=== PATIENT | female | born 1965 | race Caucasian/White ===

== ENCOUNTER 2016-11-01 17:25 | Observation (INO) | payer OTHER ==
--- NOTE | 2016-11-01 18:04 | ED ---
General Adult HPI - General Chief complaint: Altered Mental Status Stated complaint: altered mental status Time Seen by Provider: 11/01/16 17:56 Source: patient, EMS Mode of arrival: EMS Limitations: altered mental status - History of Present Illness Initial comments: 51-year-old female onset about an hour prior to arrival of of confusion, headache they did not note any weakness perhaps mild weakness the right eye. She's had no history of hypertension stroke she's had back surgery in June she has no diabetes asthma emphysema. - Related Data Home Medications Medication Instructions Recorded Confirmed Amitriptyline HCl [Elavil] 25 mg PO HS 11/01/16 11/01/16 Cholecalciferol [Vitamin D3] 2,000 unit PO DAILY 11/01/16 11/01/16 Gabapentin [Neurontin] 300 mg PO TID 11/01/16 11/01/16 Ibuprofen [Motrin] 800 mg PO Q8H PRN 11/01/16 11/01/16 traMADol HCL [Ultram] 50 mg PO Q12H PRN 11/01/16 11/01/16 Previous Rx's Medication Instructions Recorded Cyclobenzaprine [Flexeril] 10 mg PO TID PRN #10 tab 02/16/16 Allergies Allergy/AdvReac Type Severity Reaction Status Date / Time No Known Allergies Allergy Verified 11/01/16 17:53 Review of Systems ROS Statement: Those systems with pertinent positive or pertinent negative responses have been documented in the HPI. ROS Other: All systems not noted in ROS Statement are negative. Constitutional: Denies: fever, chills Eyes: Denies: eye pain, eye discharge ENT: Denies: ear pain, throat pain Respiratory: Denies: cough Cardiovascular: Denies: chest pain Gastrointestinal: Denies: abdominal pain, nausea Neurological: Reports: headache, confusion Hematological/Lymphatic: Denies: easy bleeding, easy bruising Past Medical History Past Medical History: Cancer, Thyroid Disorder Additional Past Medical History / Comment(s): SKIN CANCER, MIGRAINE HEADACHE, THYROID CANCER, CHRONIC BACK History of Any Multi-Drug Resistant Organisms: None Reported Past Surgical History: Section, Orthopedic Surgery Additional Past Surgical History / Comment(s): neck surgery - fusion, thyroidectomy 03/06/15 Past Anesthesia/Blood Transfusion Reactions: No Reported Reaction Past Psychological History: Anxiety Additional Psychological History / Comment(s): severe anxiety Smoking Status: Current every day smoker Past Alcohol Use History: None Reported Past Drug Use History: None Reported - Past Family History Mother Family Medical History: COPD General Exam Limitations: no limitations, altered mental status General appearance: alert Head exam: Present: atraumatic Eye exam: Present: PERRL, EOMI ENT exam: Present: normal oropharynx, mucous membranes moist Neck exam: Present: normal inspection, full ROM Respiratory exam: Present: normal lung sounds bilaterally Cardiovascular Exam: Present: regular rate, normal heart sounds GI/Abdominal exam: Present: soft. Absent: tenderness Neurological exam: Present: alert, CN II-XII intact, motor sensory deficit ( Mild weakness the right hand can move fine motor's no facial weakness NIH scale by the nursing staff is 5 she does have a right foot drop that is old she can has good strength in her legs.) Psychiatric exam: Present: agitated Skin exam: Present: warm, dry Course Vital Signs 11/01/16 11/01/16 11/01/16 17:45 18:00 18:15 Temperature 97.9 F Pulse Rate 113 H 91 110 H Respiratory 18 16 18 Rate Blood Pressure 168/119 194/111 179/91 O2 Sat by Pulse 99 99 98 Oximetry 11/01/16 11/01/16 11/01/16 18:30 18:45 19:21 Temperature Pulse Rate 82 93 82 Respiratory 16 18 16 Rate Blood Pressure 152/92 165/79 136/93 O2 Sat by Pulse 99 99 98 Oximetry Medical Decision Making - Medical Decision Making Stroke robot was consulted with the neurologist regarding stroke when she was evaluated by him the INH scale was down to 2 he advised no TPA at this time he saw a small old stroke she is becoming less confused her blood pressures gradually dropping he's indicates to admit here eventually do a CTA to exclude aneurysm and it MRI will speak with our neurologist and the balloon dipper for admission. We'll speak with balloon dipper for her physician Dr Roman - Lab Data Result diagrams: 11/01/16 18:10 11/01/16 18:10 Lab Results 11/01/16 11/01/16 11/01/16 Range/Units 17:55 18:10 18:10 WBC 8.2 (3.8-10.6) k/uL RBC 4.90 (3.80-5.40) m/uL Hgb 13.9 (11.4-16.0) gm/dL Hct 43.2 (34.0-46.0) % MCV 88.2 (80.0-100.0) fL MCH 28.4 (25.0-35.0) pg MCHC 32.2 (31.0-37.0) g/dL RDW 13.4 (11.5-15.5) % Plt Count 331 (150-450) k/uL Neutrophils % 52 % Lymphocytes % 38 % Monocytes % 5 % Eosinophils % 2 % Basophils % 1 % Neutrophils # 4.3 (1.3-7.7) k/uL Lymphocytes # 3.2 (1.0-4.8) k/uL Monocytes # 0.4 (0-1.0) k/uL Eosinophils # 0.2 (0-0.7) k/uL Basophils # 0.1 (0-0.2) k/uL PT (9.0-12.0) sec INR (<1.1) APTT (22.0-30.0) sec Sodium (137-145) mmol/L Potassium (3.5-5.1) mmol/L Chloride (98-107) mmol/L Carbon Dioxide (22-30) mmol/L Anion Gap mmol/L BUN (7-17) mg/dL Creatinine (0.52-1.04) mg/dL Est GFR (MDRD) Af Amer (>60 ml/min/1.73 sqM) Est GFR (MDRD) Non-Af (>60 ml/min/1.73 sqM) Glucose (74-99) mg/dL Calcium (8.4-10.2) mg/dL Total Bilirubin (0.2-1.3) mg/dL AST (14-36) U/L ALT (9-52) U/L Alkaline Phosphatase (38-126) U/L Total Creatine Kinase 59 (30-135) U/L CK-MB (CK-2) <0.2 (0.0-2.4) ng/mL CK-MB (CK-2) Rel Index Troponin I <0.012 (0.000-0.034) ng/mL Total Protein (6.3-8.2) g/dL Albumin (3.5-5.0) g/dL Urine Color Light Yellow Urine Appearance Clear (Clear) Urine pH 7.0 (5.0-8.0) Ur Specific [place] 1.003 (1.001-1.035) Urine Protein Negative (Negative) Urine Glucose (UA) Negative (Negative) Urine Ketones Negative (Negative) Urine Blood Negative (Negative) Urine Nitrate Negative (Negative) Urine Bilirubin Negative (Negative) Urine Urobilinogen <2.0 (<2.0) mg/dL Ur Leukocyte Esterase Negative (Negative) Urine Opiates Screen Not Detected (NotDetected) Ur Oxycodone Screen Not Detected (NotDetected) Urine Methadone Screen Not Detected (NotDetected) Ur Propoxyphene Screen Not Detected (NotDetected) Ur Barbiturates Screen Not Detected (NotDetected) U Tricyclic Antidepress Detected H (NotDetected) Ur Phencyclidine Scrn Not Detected (NotDetected) Ur Amphetamines Screen Not Detected (NotDetected) U Methamphetamines Scrn Not Detected (NotDetected) U Benzodiazepines Scrn Not Detected (NotDetected) Urine Cocaine Screen Not Detected (NotDetected) U Marijuana (THC) Screen Not Detected (NotDetected) 11/01/16 11/01/16 Range/Units 18:10 18:10 WBC (3.8-10.6) k/uL RBC (3.80-5.40) m/uL Hgb (11.4-16.0) gm/dL Hct (34.0-46.0) % MCV (80.0-100.0) fL MCH (25.0-35.0) pg MCHC (31.0-37.0) g/dL RDW (11.5-15.5) % Plt Count (150-450) k/uL Neutrophils % % Lymphocytes % % Monocytes % % Eosinophils % % Basophils % % Neutrophils # (1.3-7.7) k/uL Lymphocytes # (1.0-4.8) k/uL Monocytes # (0-1.0) k/uL Eosinophils # (0-0.7) k/uL Basophils # (0-0.2) k/uL PT 9.9 (9.0-12.0) sec INR 1.0 (<1.1) APTT 22.3 (22.0-30.0) sec Sodium 145 (137-145) mmol/L Potassium 3.9 (3.5-5.1) mmol/L Chloride 106 (98-107) mmol/L Carbon Dioxide 31 H (22-30) mmol/L Anion Gap 8 mmol/L BUN 6 L (7-17) mg/dL Creatinine 0.63 (0.52-1.04) mg/dL Est GFR (MDRD) Af Amer >60 (>60 ml/min/1.73 sqM) Est GFR (MDRD) Non-Af >60 (>60 ml/min/1.73 sqM) Glucose 96 (74-99) mg/dL Calcium 11.4 H (8.4-10.2) mg/dL Total Bilirubin 0.4 (0.2-1.3) mg/dL AST 19 (14-36) U/L ALT 20 (9-52) U/L Alkaline Phosphatase 93 (38-126) U/L Total Creatine Kinase (30-135) U/L CK-MB (CK-2) (0.0-2.4) ng/mL CK-MB (CK-2) Rel Index Troponin I (0.000-0.034) ng/mL Total Protein 7.5 (6.3-8.2) g/dL Albumin 4.2 (3.5-5.0) g/dL Urine Color Urine Appearance (Clear) Urine pH (5.0-8.0) Ur Specific [place] (1.001-1.035) Urine Protein (Negative) Urine Glucose (UA) (Negative) Urine Ketones (Negative) Urine Blood (Negative) Urine Nitrate (Negative) Urine Bilirubin (Negative) Urine Urobilinogen (<2.0) mg/dL Ur Leukocyte Esterase (Negative) Urine Opiates Screen (NotDetected) Ur Oxycodone Screen (NotDetected) Urine Methadone Screen (NotDetected) Ur Propoxyphene Screen (NotDetected) Ur Barbiturates Screen (NotDetected) U Tricyclic Antidepress (NotDetected) Ur Phencyclidine Scrn (NotDetected) Ur Amphetamines Screen (NotDetected) U Methamphetamines Scrn (NotDetected) U Benzodiazepines Scrn (NotDetected) Urine Cocaine Screen (NotDetected) U Marijuana (THC) Screen (NotDetected) - EKG Data -: EKG Interpreted by Me 11/01/16 18:03 ECG 11/01/2016 1737 ventricular rate 1 her 4 bpm, [place] interval 120 ms, QRS duration 82 ms QT interval 334 ms sinus tachycardia poor progression of the R wave cannot exclude old anterior infarction Disposition Clinical Impression: CVA (cerebral vascular accident), Hypertension, Altered mental status Disposition: ADMITTED IP TO THIS HOSP Condition: Serious Referrals: Polina Mullen MD [Primary Care Provider] - 1-2 days Time of Disposition: 19:05
[2016-11-01 18:20] LABS: Appearance,Urine Clear (Clear); Bilirubin,Urine Negative (Negative); Glucose,Urine (UA) Negative (Negative); Ketones,Urine Negative (Negative); Leukocyte Esterase,Urine Negative (Negative); Nitrite,Urine Negative (Negative); Protein,Urine Negative (Negative); Specific Gravity,Urine 1.003 (1.001-1.035); UA Billing (MACRO vs. MICRO) CHEM; Urobilinogen,Urine <2.0 mg/dL (<2.0)
[2016-11-01 18:21] LABS: Basophils # (A) 0.1 k/uL (0-0.2); Basophils % (A) 1 %; CH 29.1; CHCM 33.1; Eosinophils # (A) 0.2 k/uL (0-0.7); Eosinophils % (A) 2 %; HCT 43.2 % (34.0-46.0); HDW 2.58; HGB 13.9 gm/dL (11.4-16.0); Luc % (Auto) 3; Lymphocytes # (A) 3.2 k/uL (1.0-4.8); Lymphocytes % (A) 38 %; MCH 28.4 pg (25.0-35.0); MCHC 32.2 g/dL (31.0-37.0); MCV 88.2 fL (80.0-100.0); Mean Platelet Volume 7.9; Monocytes # (A) 0.4 k/uL (0-1.0); Monocytes % (A) 5 %; Neutrophils # (A) 4.3 k/uL (1.3-7.7); Neutrophils % (A) 52 %; RDW 13.4 % (11.5-15.5); WBC 8.2 k/uL (3.8-10.6); WBC (Perox) 7.95
[2016-11-01 18:29] LABS: Partial Thromboplastin Time 22.3 sec (22.0-30.0); Prothrombin Time 9.9 sec (9.0-12.0)
[2016-11-01 18:36] LABS: ALT 20 U/L (9-52); AST 19 U/L (14-36); Alkaline Phosphatase 93 U/L (38-126); Anion Gap 8 mmol/L; Blood Urea Nitrogen 6 mg/dL (7-17); Calcium 11.4 mg/dL (8.4-10.2); Carbon Dioxide 31 mmol/L (22-30); Chloride 106 mmol/L (98-107); Glucose 96 mg/dL (74-99); Non-African American GFR(MDRD) >60 (>60 ml/min/1.73 sqM); Potassium 3.9 mmol/L (3.5-5.1); Sodium 145 mmol/L (137-145); Total Bilirubin 0.4 mg/dL (0.2-1.3); Total Protein 7.5 g/dL (6.3-8.2)
[2016-11-01 18:41] LABS: Creatine Kinase 59 U/L (30-135)
--- NOTE | 2016-11-01 18:42 | CT ---
EXAMINATION TYPE: CT brain wo con DATE OF EXAM: 11/01/2016 6:26 PM COMPARISON: Prior CT brain December 16, 2014 HISTORY: Right sided posterior headache CT DLP: 1072.3 mGycm. Automated Exposure Control for Dose Reduction was Utilized. TECHNIQUE: CT scan of the head is performed without contrast. FINDINGS: There is no acute intracranial hemorrhage, mass effect, or midline shift identified. The ventricles and sulci are within normal limits in size. Hill-white matter differentiation is maintai ambrose. There is mild to moderate mucosal thickening in the visualized left maxillary sinus. There is ev idence of prior sinus surgery. There is completely opacified left anterior ethmoid and frontal sinus. IMPRESSION: No acute intracranial hemorrhage hemorrhage or midline shift is seen. Persistent left-si ded sinus disease despite prior sinus surgery.
[2016-11-01 18:54] LABS: Creatine Kinase MB <0.2 ng/mL (0.0-2.4); Troponin I <0.012 ng/mL (0.000-0.034)
[2016-11-01] MEDS ORDERED: RX INFO: IV CONTRAST WAS GIVEN 1 EACH MISC MISCELLANE PRN (19:20)
--- NOTE | 2016-11-01 19:31 | XR ---
EXAMINATION TYPE: XR chest 1V portable DATE OF EXAM: 11/01/2016 7:26 PM COMPARISON: Chest x-ray March 20, 2015. HISTORY: Altered mental status and weakness TECHNIQUE: Single frontal view of the chest is obtained. FINDINGS: There is no focal air space opacity, pleural effusion, or pneumothorax seen. The cardiac silhouette size is within normal limits. Anterior fusion plate lower cervical spine is present. IMPRESSION: No acute process.
[2016-11-01] MEDS ORDERED: ASPIRIN 325 MG TAB PO STA (19:43)
--- NOTE | 2016-11-01 20:12 | CT ---
EXAMINATION TYPE: CT angio head DATE OF EXAM: 11/01/2016 7:58 PM COMPARISON: NONE HISTORY: Right sided posterior headache CT DLP: 1002 mGycm Automated exposure control for dose reduction was used. TECHNIQUE: Performed with IV Contrast, patient injected with 100 mL of Omnipaque 350. Three-D reconstructed imag es are created and reviewed on independent workstation. . FINDINGS: There is codominant vertebrobasilar system. There is no significant focal stenosis or aneurysmal chavez ge in the posterior circulation. There are patent posterior communicating arteries identified bilater ally. Images of the anterior circulation show no significant focal stenosis or aneurysmal change. Patent an terior communicating artery is noted. IMPRESSION: No significant focal stenosis or aneurysmal change at [place].
[2016-11-01 22:47] VITALS: BMI 28.3
[2016-11-01] MEDS: AMITRIPTYLINE HCL 25 MG TAB PO SCH (22:50)
[2016-11-01] MEDS: GABAPENTIN 300 MG CAP PO SCH (22:50)
[2016-11-02 08:21] LABS: Glucose,Whole Blood 87 mg/dL (75-99)
--- NOTE | 2016-11-02 09:08 | US ---
EXAMINATION TYPE: US carotid duplex BILAT DATE OF EXAM: 11/02/2016 8:57 AM COMPARISON: NONE CLINICAL HISTORY: Stenosis. Confusion, headache, right sided weakness EXAM MEASUREMENTS: RIGHT: Peak Systolic Velocity (PSV) cm/sec ----- Right CCA: 72.8 ----- Right ICA: 81.1 ----- Right ECA: 84.4 ICA/CCA ratio: 1.1 RIGHT: End Diastole cm/sec ----- Right CCA: 24.8 ----- Right ICA: 40.3 ----- Right ECA: 21.6 LEFT: Peak Systolic Velocity (PSV) cm/sec ----- Left CCA: 75.3 ----- Left ICA: 96.6 ----- Left ECA: 65.6 ICA/CCA ratio: 1.3 LEFT: End Diastole cm/sec ----- Left CCA: 26.0 ----- Left ICA: 30.6 ----- Left ECA: 19.4 VERTEBRALS (direction of flow): Right Vertebral: Antegrade Left Vertebral: Antegrade IMPRESSION: Mild plaque noted bilateral bifurcations. NO increased velocities. NO significant stenos is. Criteria for Assigning % of Stenosis / Diameter reduction (Estimation based on the indirect measurements of the internal carotid artery velocities (ICA PSV). 1. Normal (no stenosis)=ICA PSV < 125 cm/s: ratio < 2.0: ICA EDV<40 cm/s. 2. Less than 50% stenosis=ICA PSV < 125 cm/s: ratio < 2.0: ICA EDV<40 cm/s. 3. 50 to 69% stenosis=ICA PSV of 125 to 230 cm/s: ration 2.0 ? 4.0: ICA EDV 40-100 cm/s. 4. Greater than 70% stenosis to near occlusion= ICA PSV > 230 cm/s: ratio > 4.0: ICA EDV > 100 cm/s. 5. Near occlusion= ICA PSV velocities may be low or undetectable: variable ratio and ICA EDV. 6. Total occlusion=unable to detect flow.
[2016-11-02] MEDS: GABAPENTIN 300 MG CAP PO SCH ×3 (09:21→20:21)
[2016-11-02] MEDS: ASPIRIN 325 MG TAB PO SCH (09:22)
--- NOTE | 2016-11-02 13:50 | HP ---
DATE OF ADMISSION: CHIEF COMPLAINT: CVA. HISTORY OF PRESENT ILLNESS: This is the first known admission for this 51-year-old G3, P3, A0 white female. She started to have some pain in the posterior neck associated with a headache and she came to emergency room where it was thought that she was having a CVA or TIA. Blood pressure was very high. She had no visual changes, syncope, chest pain, etc. REVIEW OF SYSTEMS: She has had no other signs or symptoms and she has had no neurologic problems, history of other medical problems, seizures, headaches, etc. She is left-handed. Past medical history, family history, and personal and social histories reveal that she has had surgery on her LS-spine and she has right drop foot as a result. She has also had thyroid malignancy in the past and cervical spine fusion. She is not allergic to any medications. She smokes about 1/2 pack of cigarettes a day. PHYSICAL EXAMINATION: VITALS SIGNS: Blood pressure is 210/110 with a pulse of 96, respirations 30 and she is afebrile. GENERAL: She appeared to be ( ), well-developed, well-nourished, in no acute distress. Skin color is normal. Skin is warm and dry. Lymph nodes are not enlarged. Head, ears, eyes, nose, mouth, and throat were normal. Carotids normal and there is no neck vein distention. The chest is clear to auscultation and percussion. The cardiac exam is normal, sinus rhythm with no murmurs or extra sounds. The abdomen is soft and nontender without visceromegaly or masses. EXTREMITIES: Normal except for the right drop foot. She is in admitted to the hospital with diagnoses: 1. Questionable cerebrovascular accident or transient ischemic attack. 2. Malignant hypertension. 3. History of cervical spondylosis. 4. 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 5. History of carcinoma of the thyroid. PLAN: 1. Bed rest. 2. IV fluids. 3. Frequent monitoring of her neurologic status and vital signs. 4. Carotid duplex imaging and echocardiogram.
--- NOTE | 2016-11-02 13:53 | PN ---
DATE OF SERVICE: 11/02/2016 CHIEF COMPLAINT: CVA or TIA. HISTORY OF PRESENT ILLNESS: This lady is doing a lot better today. She has fairly well-preserved strength. She is left-handed. PHYSICAL EXAM: HEENT is normal. Chest is clear. The cardiac exam is normal. The abdomen is soft, nontender. She is a little bit weaker on the right than on the left, but she is left-handed. IMPRESSION: 1. Transient ischemic attack or cerebrovascular accident. 2. Malignant hypertension. PLAN: 1. Continue work-up. 2. Increase activity.
[2016-11-02] MEDS: NICOTINE 21MG/24HR PATCH TRANSDERM SCH (15:00)
--- NOTE | 2016-11-02 17:37 | P.CNNES ---
History of Present Illness Consult date: 11/02/16 History of Present Illness: The patient is a 51-year-old left-handed white female who states that around 4: 00 yesterday afternoon she developed pain in the right occipital area and right frontal head region. She has a history of migraine headaches and the night before she had taken some Motrin for her usual headache but this headache was different in that it is in the occiput region. She has a history of migraines but this headache was not a migraine and was not associated with nausea or photophobia. According to family were at her bedside she became confused after her headache came on. She became somewhat hysterical. She did not know where she was and for a while did not know her daughter. Her daughter called EMS and she was brought to the emergency room. She had no focal weakness or numbness. She had no speech disturbance. She was given an aspirin in her headache eased. She had a CT of the brain which was unremarkable and a CTA was done which showed no significant stenosis. She was admitted to the hospital for possible TIA. The patient states her headache is better now after taking aspirin. She points to the right occipital notch and does admit to some tenderness there. She has a history of cervical fusion in the past but denies any current neck problems. She has chronic back problems. Review of Systems Constitutional: Denies chills, Denies fever Eyes: denies blurred vision, denies pain Ears, nose, mouth and throat: Denies headache, Denies sore throat Cardiovascular: Reports as per HPI Respiratory: Reports as per HPI Gastrointestinal: Denies abdominal pain, Denies diarrhea, Denies nausea, Denies vomiting Genitourinary: Denies dysuria, Denies hematuria Musculoskeletal: Denies myalgias Neurological: Denies numbness, Denies weakness Psychiatric: Denies anxiety, Denies depression Endocrine: Reports as per HPI Past Medical History Past Medical History: Cancer, Thyroid Disorder Additional Past Medical History / Comment(s): SKIN CANCER, MIGRAINE HEADACHE, THYROID CANCER, CHRONIC BACK History of Any Multi-Drug Resistant Organisms: None Reported Past Surgical History: Section, Orthopedic Surgery Additional Past Surgical History / Comment(s): neck surgery - fusion, thyroidectomy 03/06/15, back surgery 07/08 Past Anesthesia/Blood Transfusion Reactions: No Reported Reaction Past Psychological History: Anxiety Additional Psychological History / Comment(s): severe anxiety Smoking Status: Current every day smoker Past Alcohol Use History: None Reported Past Drug Use History: None Reported - Past Family History Mother Family Medical History: COPD Medications and Allergies Home Medications Medication Instructions Recorded Confirmed Type Amitriptyline HCl [Elavil] 25 mg PO HS 11/01/16 11/01/16 History Cholecalciferol [Vitamin D3] 2,000 unit PO DAILY 11/01/16 11/01/16 History Gabapentin [Neurontin] 300 mg PO TID 11/01/16 11/01/16 History Ibuprofen [Motrin] 800 mg PO Q8H PRN 11/01/16 11/01/16 History traMADol HCL [Ultram] 50 mg PO Q12H PRN 11/01/16 11/01/16 History Allergies Allergy/AdvReac Type Severity Reaction Status Date / Time No Known Allergies Allergy Verified 11/01/16 17:53 Physical Examination - Vital Signs Vital Signs: Vital Signs Temp Pulse Pulse Resp BP BP Pulse Ox 11/02/16 16:00 97.4 F L 92 18 138/76 97 11/02/16 12:00 96.8 F L 95 18 143/91 97 11/02/16 08:00 97.1 F L 88 18 127/83 98 11/02/16 04:00 98.1 F 84 16 116/75 98 11/02/16 00:00 96.1 F L 86 18 131/93 96 11/01/16 20:42 96.3 F L 88 18 132/87 98 11/01/16 19:55 72 16 142/96 97 Intake and Output 11/02/16 11/02/16 11/02/16 06:59 14:59 22:59 Intake Total 300 Output Total 250 1000 Balance 50 -1000 Intake: Oral 300 Output: Urine 250 1000 Other: Voiding Method Toilet Toilet Toilet # Voids 1 Weight 60 kg - Constitutional General appearance: average body habitus - EENT EENT: hearing intact, vision intact - Respiratory Respiratory: lungs clear - Cardiovascular Cardiovascular: regular rate, normal S1, normal S2 - Integumentary Integumentary: normal - Neurologic Cranial nerve examination: PERRL, EOMI, VFF, V1/V2/V3 grossly intact, face symmetric, tongue midline Speech examination: intact Sensorimotor examination: intact Detailed motor examination: grossly full strength in all extremities Reflexes: 2+: knee Results - Laboratory Findings CBC and BMP: 11/01/16 18:10 11/01/16 18:10 Assessment and Plan (1) Occipital neuralgia of right side Status: Acute Code(s): M54.81 - OCCIPITAL NEURALGIA (2) TIA (transient ischemic attack) Status: Acute Code(s): G45.9 - TRANSIENT CEREBRAL ISCHEMIC ATTACK, UNSPECIFIED (3) Hypertension Status: Acute Code(s): I10 - ESSENTIAL (PRIMARY) HYPERTENSION Plan: The patient is a 51-year-old woman who presents to the hospital with headache and confusion. He continues to have a mild right occipital notch tenderness and headache. Patient most likely has right occipital neuralgia. She was offered an occipital nerve block but she declined. She can be treated with nonsteroidal anti-inflammatories. She is also admitted for possible TIA. Her carotid ultrasound is negative. Her CT was unremarkable. If headache does not resolve she can have an MRI of the brain which can be done as outpatient. She will continue on aspirin daily. She will have an echocardiogram to complete TIA workup
[2016-11-02] MEDS: AMITRIPTYLINE HCL 25 MG TAB PO SCH (20:21)
[2016-11-02] MEDS ORDERED: NICOTINE 21MG/24HR PATCH TRANSDERM ONE (20:30)
[2016-11-03] MEDS: NICOTINE 21MG/24HR PATCH TRANSDERM SCH ×2 (08:32→08:34)
[2016-11-03] MEDS: GABAPENTIN 300 MG CAP PO SCH (08:32)
[2016-11-03] MEDS: ASPIRIN 325 MG TAB PO SCH (08:32)
[2016-11-03 08:37] VITALS: BP 111/58; PULSE 75; RESP 17; TEMP 97.1
--- NOTE | 2016-11-03 09:36 | ECHOF ---
Referral Reason:TIA MEASUREMENTS -------- HEIGHT: 152.4 cm WEIGHT: 59.9 kg BP: 91/53 IVSd: 1.0 cm (0.6 - 1.1) LVIDd: 3.2 cm (3.9 - 5.3) LVPWd: 1.1 cm (0.6 - 1.1) IVSs: 1.2 cm LVIDs: 2.3 cm LVPWs: 1.2 cm LA Diam: 2.5 cm (2.7 - 3.8) Ao Diam: 3.0 cm (2.0 - 3.7) AV Cusp: 1.9 cm (1.5 - 2.6) LA Diam: 3.5 cm (2.7 - 3.8) MV EXCURSION: 17.310 mm (> 18.000) MV EF SLOPE: 90 mm/s (70 - 150) EPSS: 0.5 cm MV E Wade: 0.59 m/s MV DecT: 135 ms MV A Wade: 0.65 m/s MV E/A Ratio: 0.91 RAP: 5.00 mmHg RVSP: 15.61 mmHg FINDINGS -------- Sinus rhythm. This was a technically good study. LV size, wall thickness and systolic function are normal, with an EF greater than 55%. The right ventricle is normal in size. The left atrial size is normal. The right atrial size is normal. There is mild aortic valve sclerosis. There is no evidence of aortic regurgitation. Mild mitral annular calcification present. Mild mitral regurgitation is present. Mild tricuspid regurgitation present. There is no evidence of pulmonary hypertension. The right ventricular systolic pressure, as measured by Doppler, is 15.61mmHg. There is no pulmonic regurgitation present. The aortic root size is normal. There is no pericardial effusion. CONCLUSIONS -------- 1. LV size, wall thickness and systolic function are normal, with an EF greater than 55%. 2. There is mild aortic valve sclerosis. 3. Mild mitral annular calcification present. 4. Mild mitral regurgitation is present. 5. Mild tricuspid regurgitation present. 6. There is no evidence of pulmonary hypertension. 7. The right ventricular systolic pressure, as measured by Doppler, is 15.61mmHg. PARKING LOT ATTENDANT AND CASHIER: Linda Solano RDCS
--- NOTE | 2016-11-03 11:11 | P.DS ---
Providers Date of admission: 11/01/16 19:43 Expected date of discharge: 11/03/16 Attending physician: Benjamin Roman Consults: Dr. Lira Primary care physician: [facility] Course: 51-year-old who presents to the hospital on the day of admission with a chief complaint of a headache and noted to be confused. Patient had mild right occipital notch tenderness with a headache. Neurology consultation was requested. Patient was seen by Dr. Lira. Patient's was felt to be likely experiencing a right occipital neuralgia patient was offered an occipital nerve block the patient declined patient was treated with anti-inflammatories. Carotid Doppler studies were negative CAT scan of the brain was unremarkable patient's symptoms improved patient was requesting to be discharged. Neurology recommended starting an aspirin on the patient to the patient to be followed in an outpatient setting the CAT scan of the brain showed no aneurysm. Chest x- ray showed no acute abnormality. Impression discharge diagnosis Present on admission right frontal head headache with right occipital area no focal weakness no speech disturbance possible TIA not ruled out History of migraine headache associated the past with photophobia and nausea Anxiety disorder nonspecified Current every day smoker Occipital neuralgia of right side Status: Acute Code(s): M54.81 - OCCIPITAL NEURALGIA (2) TIA (transient ischemic attack) Status: Acute Code(s): G45.9 - TRANSIENT CEREBRAL ISCHEMIC ATTACK, UNSPECIFIED (3) Hypertension Status: Acute Code(s): I10 - ESSENTIAL (PRIMARY) HYPERTENSION The above dictated assessment and findings were discussed with dr juan luis Tinajero and the plan of care have been dictated as directed. Libby Stoddard nurse practitioner acting as a scribe for dr roman Patient Condition at Discharge: Serious Plan - Discharge Summary New Discharge Prescriptions: Aspirin 325 mg PO DAILY #30 tab Discharge Medication List Cyclobenzaprine [Flexeril] 10 mg PO TID PRN #10 tab 02/16/16 [Rx] Amitriptyline HCl [Elavil] 25 mg PO HS 11/01/16 [History] Cholecalciferol [Vitamin D3] 2,000 unit PO DAILY 11/01/16 [History] Gabapentin [Neurontin] 300 mg PO TID 11/01/16 [History] Ibuprofen [Motrin] 800 mg PO Q8H PRN 11/01/16 [History] traMADol HCL [Ultram] 50 mg PO Q12H PRN 11/01/16 [History] Aspirin 325 mg PO DAILY #30 tab 11/03/16 [Rx] Follow up Appointment(s)/Referral(s): Polina Mullen MD [Primary Care Provider] - 1-2 days Sheri Lira MD [STAFF PHYSICIAN] - 1 Week Activity/Diet/Wound Care/Special Instructions: Patient has been advised to stop smoking cigarettes smoking cessation information provided Discharge Disposition: HOME SELF-CARE
--- NOTE | 2016-11-03 21:24 | PN ---
DATE OF SERVICE: 11/03/2016 CHIEF COMPLAINT: Malignant hypertension and CVA. HISTORY OF PRESENT ILLNESS: This lady is doing well. She has had no problems. She is having no neurologic difficulty. Blood pressure has been under good control. PHYSICAL EXAMINATION: CHEST: Clear. CARDIAC: Normal. ABDOMEN: Soft, nontender. She has no weakness. IMPRESSION: 1. Malignant hypertension. 2. Transient ischemic attack. PLAN: Probably home today. This will be arranged by the nurse practitioner.
== END 2016-11-03 12:24 | disposition home or self-care (01) ==
LOC: EC 17:25 → 6SEL 19:43 → INTOOBSV 19:43 → 6SEL 21:01
PROVIDERS: ADMIT Family Medicine; ATTEND Family Medicine
DX: M54.81 Occipital neuralgia (principal); G45.9 Transient cerebral ischemic attack, unspecified; I10 Essential (primary) hypertension; F17.200 Nicotine dependence, unspecified, uncomplicated; Z79.899 Other long term (current) drug therapy; Z85.828 Personal history of other malignant neoplasm of skin; Z85.850 Personal history of malignant neoplasm of thyroid; Z98.1 Arthrodesis status; G43.909 Migraine, unspecified, not intractable, without status migrainosus; M21.371 Foot drop, right foot; Z71.6 Tobacco abuse counseling
CPT/HCPCS: 99291; 36415; 93005; 93306; 97161; 92610; 92523; 80053; 82550; 82553; 84484; 85025; 85610; 85730; 81003; 80306; 71010; 93880; 70496; 70450; G0378 ×3; S4990; Q9967

== ENCOUNTER → 2017-05-25 | Outpatient (CLI) | payer OTHER ==
--- NOTE | 2017-05-25 09:27 | USB ---
Reason for exam: additional evaluation requested from abnormal screening. History: Patient is postmenopausal and has history of other cancer at age 50. Physical Findings: Breast exam preformed at baseline screening. US Breast Workup Limited RT Prior study comparison: May 18, 2017, bilateral MG screening mammo w CAD. Right breast ultrasound demonstrates no cystic or solid lesion seen. These results were verbally communicated with the patient and result sheet given to the patient on 05/25/17. ASSESSMENT: Incomplete: need additional imaging evaluation, BI-RAD 0 RECOMMENDATION: Special view mammogram of the right breast. (Patient would not stay for additional mammographic images, states she will call and make an appointment to come back at a later date) ROSA
== END | disposition home or self-care (01) ==
LOC: RADUSWWP 07:59
PROVIDERS: ATTEND Obstetrics & Gynecology
DX: R92.8 Other abnormal and inconclusive findings on diagnostic imaging of breast (principal)

== ENCOUNTER → 2017-05-27 | Outpatient (CLI) | payer OTHER ==
--- NOTE | 2017-05-27 23:10 | MR ---
EXAMINATION TYPE: MR lumbar spine wo/w con DATE OF EXAM: 05/27/2017 COMPARISON: NONE HISTORY: Radiculopathy TECHNIQUE: Multiplanar, multisequence images of the lumbar spine were acquired utilizing 6.0 mL intravenous Gada vist gadolinium contrast. The lumbar vertebra have normal alignment. There is degenerative disc space narrowing throughout the lumbar spine and more noticeable from L2 to L5. There is no spinal stenosis. There is no paraspinal m ass. There is no compression fracture. There are multiple cysts in the left kidney. There are small posterior disc bulges at L3-4 L4-5 without significant impingement on the neural nuiqsut ents. The neural foramina are fairly well maintained. The contrast images show no pathologic enhancem ent. IMPRESSION: Spondylotic changes. No spinal stenosis. Small posterior disc bulging at L3-4 L4-5. L5 laminectomy no willis on the right side.
== END | disposition home or self-care (01) ==
LOC: RADMRIMAIN 20:44
PROVIDERS: ATTEND Nurse Practitioner Acute Care
DX: M51.16 Intervertebral disc disorders with radiculopathy, lumbar region (principal); M47.26 Other spondylosis with radiculopathy, lumbar region; R39.81 Functional urinary incontinence; Z85.850 Personal history of malignant neoplasm of thyroid; Z98.890 Other specified postprocedural states
CPT/HCPCS: 72158; A9581

== ENCOUNTER → 2017-06-08 | Day surgery (SDC) | payer OTHER ==
[2017-06-08 07:46] VITALS: RESP 16; BMI 24.7
[2017-06-08 09:08] VITALS: BP 105/75; PULSE 71; TEMP 96.8
--- NOTE | 2017-06-09 09:37 | MM ---
EXAMINATION TYPE: MG stereo VAD BX RT, MG work up mamm w CAD RT DATE OF EXAM: 06/08/2017 COMPARISON: Exams dating back to 05/18/2017 CLINICAL HISTORY: 7 mm right breast mass at the 7:00 position TECHNIQUE: Stereotactic guided core biopsy of a right breast mass. FINDINGS: The procedure of stereotactic guided core biopsy was explained to the patient. Benefits, alternatives, and risks were discussed. An informed consent was then obtained. The shortness pathway for biopsy was chosen. Shortness pathway was CC from below approach. Coordinates were plotted and the patient was anesthetized with 10 cc of Xylocaine without epinephrine. Eight core needle biopsies were obtained with a 19-gauge eviva vacuum assisted biopsy device after approaching the area and anesthetizing with 10 cc of additional Xylocaine at the biopsy site. The patient tolerated the procedure well without any immediate complication. The patient was kept in the radiology department for short stay after the procedure and then discharged home in stable condition. Post biopsy mammogram shows the marker to appear in satisfactory position relative to the targeted area of concern on the preprocedure images. IMPRESSION: SUCCESSFUL, UNCOMPLICATED STEREOTACTIC GUIDED CORE BIOPSY OF AREA OF CONCERN IN THE RIGHT BREAST, FULL PATHOLOGY RESULTS TO FOLLOW. Pathology Results: Benign BREAST, RIGHT, CORE BIOPSY: FIBROADENOMA. BACKGROUND FIBROCYSTIC CHANGES INCLUDING FIBROSIS AND SMALL CYSTS. Recommendation Follow up mammogram of the right breast in 6 months. ROSA
== END ==
LOC: RADMAMWWP 06:48
PROVIDERS: ATTEND Surgery
DX: D24.1 Benign neoplasm of right breast (principal); N60.11 Diffuse cystic mastopathy of right breast; N60.01 Solitary cyst of right breast
CPT/HCPCS: 88305; 19081; A4648; J2001

== ENCOUNTER 2018-11-06 09:46 | Emergency (ER) | payer MEDICARE, OTHER ==
[2018-11-06] MEDS ORDERED: SODIUM CHLORIDE 0.9% 1,000 ML IV STA (09:49)
[2018-11-06] MEDS ORDERED: MAG HYDROX/AL HYDROX/SIMETH 30 ML, HYOSCYAMINE ELIXIR 10 ML, CIMETIDINE HCL 300 MG, LID... PO STA ×4 (09:53)
[2018-11-06 10:05] LABS: HCT 45.6 % (34.0-46.0); HGB 14.4 gm/dL (11.4-16.0); MCH 28.2 pg (25.0-35.0); MCHC 31.6 g/dL (31.0-37.0); Mean Platelet Volume 7.3; Platelet Count 276 k/uL (150-450); RBC 5.13 m/uL (3.80-5.40); RDW 13.3 % (11.5-15.5); WBC 12.9 k/uL (3.8-10.6)
[2018-11-06 10:15] LABS: ALT 43 U/L (9-52); AST 55 U/L (14-36); Albumin 2.9 g/dL (3.5-5.0); Alkaline Phosphatase 84 U/L (38-126); Amylase 33 U/L (30-110); Anion Gap 3 mmol/L; Blood Urea Nitrogen 10 mg/dL (7-17); Calcium 10.1 mg/dL (8.4-10.2); Carbon Dioxide 24 mmol/L (22-30); Chloride 112 mmol/L (98-107); Creatine Kinase 37 U/L (30-135); Glucose 94 mg/dL (74-99); Lipase 139 U/L (23-300); Potassium 4.3 mmol/L (3.5-5.1); Sodium 139 mmol/L (137-145); Total Bilirubin 0.3 mg/dL (0.2-1.3); Total Protein 5.2 g/dL (6.3-8.2)
--- NOTE | 2018-11-06 10:27 | ED ---
Abdominal Pain HPI - General Stated Complaint: Epigastric pain Time Seen by Provider: 11/06/18 09:49 Source: patient, EMS, RN notes reviewed Mode of arrival: EMS Limitations: no limitations - History of Present Illness Initial Comments: 53-year-old female presents emergency Department with chief complaint of sudden onset of epigastric pain. Patient states she went to the bathroom states his chemo she had severe pain epigastric region. She states it radiates to her back. Patient states that she feels nauseated and started vomiting. Patient denies any shortness of breath. Patient states that the pain radiates up into her chest as a burning sensation. Patient denies any lower abdominal pain denies any dysuria, hematuria, diarrhea, constipation, melena hematochezia. Patient states nothing makes the pain feel better or worse at this time. Patient was given aspirin and Zofran by EMS. Patient states that she is to take medications regularly but states she has not taken prescription medications in over 1 year. She states that she used to be on [place], Flexeril and gabapentin. - Related Data Home Medications Medication Instructions Recorded Confirmed Folic Acid 0.4 mg PO MO 11/06/18 11/06/18 Ibuprofen [Motrin] 800 mg PO TID 11/06/18 11/06/18 Allergies Allergy/AdvReac Type Severity Reaction Status Date / Time No Known Allergies Allergy Verified 11/06/18 09:57 Review of Systems ROS Statement: Those systems with pertinent positive or pertinent negative responses have been documented in the HPI. ROS Other: All systems not noted in ROS Statement are negative. Past Medical History Past Medical History: Cancer, Thyroid Disorder Additional Past Medical History / Comment(s): SKIN CANCER, MIGRAINE HEADACHE, THYROID CANCER, CHRONIC BACK PAIN History of Any Multi-Drug Resistant Organisms: None Reported Past Surgical History: Section, Orthopedic Surgery Additional Past Surgical History / Comment(s): neck surgery - fusion, thyroidectomy 03/06/15, back surgery 07/08 Past Anesthesia/Blood Transfusion Reactions: No Reported Reaction Past Psychological History: No Psychological Hx Reported Smoking Status: Current every day smoker Past Alcohol Use History: None Reported Past Drug Use History: None Reported - Past Family History Mother Family Medical History: COPD General Exam Limitations: no limitations General appearance: alert, in no apparent distress, anxious Head exam: Present: atraumatic, normocephalic, normal inspection Eye exam: Present: normal appearance, PERRL, EOMI. Absent: scleral icterus, conjunctival injection, periorbital swelling ENT exam: Present: normal oropharynx Neck exam: Present: normal inspection, full ROM. Absent: tenderness, meningismus, lymphadenopathy Respiratory exam: Present: normal lung sounds bilaterally. Absent: respiratory distress, wheezes, rales, rhonchi, stridor Cardiovascular Exam: Present: normal rhythm, tachycardia (Heart rate 104), normal heart sounds. Absent: systolic murmur, diastolic murmur, rubs, gallop, clicks GI/Abdominal exam: Present: soft, tenderness (Moderate epigastric), normal bowel sounds. Absent: distended, guarding, rebound, rigid Back exam: Absent: CVA tenderness (R), CVA tenderness (L) Skin exam: Present: warm, dry, intact, normal color. Absent: rash Course Vital Signs 11/06/18 11/06/18 09:50 10:36 Temperature 98 F Pulse Rate 104 H 83 Respiratory 24 18 Rate Blood Pressure 150/114 125/89 O2 Sat by Pulse 97 98 Oximetry Medical Decision Making - Medical Decision Making 53-year-old female presents emergency from for epigastric pain. Patient was given GI cocktail which eliminated her symptoms though she did have some symptoms that radiate to her back. Patient lab work, CT of the abdomen and pelvis which shows evidence of hiatal hernia with intrathoracic stomach. Patient symptoms are more likely related to her had a hernia at this time. She is symptom-free. Patient's EKG, lab work otherwise unremarkable. Patient will follow-up with on-call surgery return for any worsening symptoms. - Lab Data Result diagrams: 11/06/18 09:50 11/06/18 09:50 Lab Results 11/06/18 11/06/18 11/06/18 Range/Units 09:50 09:50 09:50 WBC 12.9 H (3.8-10.6) k/uL RBC 5.13 (3.80-5.40) m/uL Hgb 14.4 (11.4-16.0) gm/dL Hct 45.6 (34.0-46.0) % MCV 89.0 (80.0-100.0) fL MCH 28.2 (25.0-35.0) pg MCHC 31.6 (31.0-37.0) g/dL RDW 13.3 (11.5-15.5) % Plt Count 276 (150-450) k/uL Neutrophils % (Manual) 51 % Lymphocytes % (Manual) 46 % Monocytes % (Manual) 2 % Eosinophils % (Manual) 1 % Neutrophils # (Manual) 6.58 (1.3-7.7) k/uL Lymphocytes # (Manual) 5.93 H (1.0-4.8) k/uL Monocytes # (Manual) 0.26 (0-1.0) k/uL Eosinophils # (Manual) 0.13 (0-0.7) k/uL Nucleated RBCs 0 (0-0) /100 WBC Manual Slide Review Performed RBC Morphology Normal Sodium 139 (137-145) mmol/L Potassium 4.3 (3.5-5.1) mmol/L Chloride 112 H (98-107) mmol/L Carbon Dioxide 24 (22-30) mmol/L Anion Gap 3 mmol/L BUN 10 (7-17) mg/dL Creatinine 0.59 (0.52-1.04) mg/dL Est GFR (CKD-EPI)AfAm >90 (>60 ml/min/1.73 sqM) Est GFR (CKD-EPI)NonAf >90 (>60 ml/min/1.73 sqM) Glucose 94 (74-99) mg/dL Plasma Lactic Acid Jose 1.3 (0.7-2.0) mmol/L Calcium 10.1 (8.4-10.2) mg/dL Total Bilirubin 0.3 (0.2-1.3) mg/dL AST 55 H (14-36) U/L ALT 43 (9-52) U/L Alkaline Phosphatase 84 (38-126) U/L Creatine Kinase 37 (30-135) U/L Troponin I (0.000-0.034) ng/mL Total Protein 5.2 L (6.3-8.2) g/dL Albumin 2.9 L (3.5-5.0) g/dL Amylase 33 (30-110) U/L Lipase 139 (23-300) U/L Urine Color Urine Appearance (Clear) Urine pH (5.0-8.0) Ur Specific [place] (1.001-1.035) Urine Protein (Negative) Urine Glucose (UA) (Negative) Urine Ketones (Negative) Urine Blood (Negative) Urine Nitrite (Negative) Urine Bilirubin (Negative) Urine Urobilinogen (<2.0) mg/dL Ur Leukocyte Esterase (Negative) 11/06/18 11/06/18 Range/Units 09:50 11:58 WBC (3.8-10.6) k/uL RBC (3.80-5.40) m/uL Hgb (11.4-16.0) gm/dL Hct (34.0-46.0) % MCV (80.0-100.0) fL MCH (25.0-35.0) pg MCHC (31.0-37.0) g/dL RDW (11.5-15.5) % Plt Count (150-450) k/uL Neutrophils % (Manual) % Lymphocytes % (Manual) % Monocytes % (Manual) % Eosinophils % (Manual) % Neutrophils # (Manual) (1.3-7.7) k/uL Lymphocytes # (Manual) (1.0-4.8) k/uL Monocytes # (Manual) (0-1.0) k/uL Eosinophils # (Manual) (0-0.7) k/uL Nucleated RBCs (0-0) /100 WBC Manual Slide Review RBC Morphology Sodium (137-145) mmol/L Potassium (3.5-5.1) mmol/L Chloride (98-107) mmol/L Carbon Dioxide (22-30) mmol/L Anion Gap mmol/L BUN (7-17) mg/dL Creatinine (0.52-1.04) mg/dL Est GFR (CKD-EPI)AfAm (>60 ml/min/1.73 sqM) Est GFR (CKD-EPI)NonAf (>60 ml/min/1.73 sqM) Glucose (74-99) mg/dL Plasma Lactic Acid Jose (0.7-2.0) mmol/L Calcium (8.4-10.2) mg/dL Total Bilirubin (0.2-1.3) mg/dL AST (14-36) U/L ALT (9-52) U/L Alkaline Phosphatase (38-126) U/L Creatine Kinase (30-135) U/L Troponin I <0.012 (0.000-0.034) ng/mL Total Protein (6.3-8.2) g/dL Albumin (3.5-5.0) g/dL Amylase (30-110) U/L Lipase (23-300) U/L Urine Color Light Yellow Urine Appearance Clear (Clear) Urine pH 5.5 (5.0-8.0) Ur Specific [place] 1.017 (1.001-1.035) Urine Protein Negative (Negative) Urine Glucose (UA) Negative (Negative) Urine Ketones Negative (Negative) Urine Blood Negative (Negative) Urine Nitrite Negative (Negative) Urine Bilirubin Negative (Negative) Urine Urobilinogen <2.0 (<2.0) mg/dL Ur Leukocyte Esterase Negative (Negative) - EKG Data EKG Comments: EKG performed at 10:05 normal sinus rhythm with rate of 77 NC 152 QRS 88 QT/QTC 360/[address] depression or elevation. Disposition Clinical Impression: Hiatal hernia, Abdominal pain Disposition: HOME SELF-CARE Condition: Stable Instructions (If sedation given, give patient instructions): Abdominal Pain (ED), Hiatal Hernia (ED) Additional Instructions: Please return to the Emergency Department if symptoms worsen or any other concerns. Is patient prescribed a controlled substance at d/c from ED?: No Referrals: Polina Mullen MD [Primary Care Provider] - 1-2 days Emeterio West MD [STAFF PHYSICIAN] - 1-2 days Time of Disposition: 12:20
[2018-11-06 10:37] VITALS: RESP 18
--- NOTE | 2018-11-06 10:38 | XR ---
EXAMINATION TYPE: XR chest 1V DATE OF EXAM: 11/06/2018 COMPARISON: Prior chest x-ray 11/01/2016 HISTORY: Chest pain TECHNIQUE: Single frontal view of the chest is obtained. FINDINGS: There is no focal air space opacity, pleural effusion, or pneumothorax seen. The cardiac silhouette size is stable. There are cardiac leads. The osseous structures are intact. IMPRESSION: No acute process.
[2018-11-06 10:57] LABS: Eosinophils # (M) 0.13 k/uL (0-0.7); Lymphocytes # (M) 5.93 k/uL (1.0-4.8); Monocytes # (M) 0.26 k/uL (0-1.0); Neutrophils # (M) 6.58 k/uL (1.3-7.7); Neutrophils % (M) 51 %; Nucleated Red Blood Cells 0 /100 WBC (0-0); Total Cells Counted 100
--- NOTE | 2018-11-06 11:45 | CT ---
EXAMINATION TYPE: CT abdomen pelvis w con DATE OF EXAM: 11/06/2018 COMPARISON: CT 03/20/2015 HISTORY: epigastric pain CT DLP: 698 mGycm Automated exposure control for dose reduction was used. TECHNIQUE: Helical acquisition of images from the lung bases through the pelvis have been completed. CONTRAST: Performed without Oral Contrast and with IV Contrast, patient injected with 100 mL of Isovue 300. FINDINGS: There is a partial intrathoracic stomach at the level of the hiatal hernia possibly larger as compared to prior exam. Small umbilical hernia contains fat. LUNG BASES: No significant abnormality is appreciated. AORTA: No significant abnormality is appreciated. LIVER/GB: No significant abnormality is appreciated. PANCREAS: No significant abnormality is seen. SPLEEN: No significant abnormality is seen. ADRENALS: No significant abnormality is seen. KIDNEYS: Left renal cysts, lower pole calcification show similar appearance to prior exam, no evident ureteral calculus REPRODUCTIVE ORGANS: No significant abnormality is seen BOWEL: There are fluid-filled loops of small bowel, correlate to exclude enteritis. FREE AIR: No Free Air visible. ASCITES: None visible. PELVIC ADENOPATHY: None visualized. RETROPERITONEAL ADENOPATHY: No Retroperitoneal Adenopathy visible. URINARY BLADDER: No significant abnormality is seen. OSSEOUS STRUCTURES: Degenerative disc changes are present in the visualized spine.. IMPRESSION: HIATAL HERNIA WITH PARTIAL INTRATHORACIC STOMACH. LEFT-SIDED NONOBSTRUCTIVE NEPHROLITHIASIS. CORRELAT E FOR POSSIBLE ENTERITIS. Additional findings above.
[2018-11-06 12:07] LABS: Appearance,Urine Clear (Clear); Bilirubin,Urine Negative (Negative); Blood,Urine Negative (Negative); Color,Urine Light Yellow; Glucose,Urine (UA) Negative (Negative); Ketones,Urine Negative (Negative); Leukocyte Esterase,Urine Negative (Negative); Nitrite,Urine Negative (Negative); PH, Urine 5.5 (5.0-8.0); Protein,Urine Negative (Negative); Specific Gravity,Urine 1.017 (1.001-1.035); Urobilinogen,Urine <2.0 mg/dL (<2.0)
[2018-11-06 12:48] VITALS: BP 104/93; PULSE 77; TEMP 98.7
== END 2018-11-06 12:50 | disposition home or self-care (01) ==
LOC: EC 09:46
DX: K44.9 Diaphragmatic hernia without obstruction or gangrene (principal); F17.200 Nicotine dependence, unspecified, uncomplicated; Z85.828 Personal history of other malignant neoplasm of skin; Z85.850 Personal history of malignant neoplasm of thyroid; Z98.1 Arthrodesis status; Z90.89 Acquired absence of other organs
CPT/HCPCS: 36415; 93005; 80053; 82150; 82550; 83605; 83690; 84484; 85025; 81003; 71045; 74177; 99285; 96360; 96361 ×2; Q9967

== ENCOUNTER → 2018-11-10 | Outpatient (CLI) | payer MEDICARE, OTHER ==
--- NOTE | 2018-11-10 17:13 | FL ---
EXAMINATION: Cervical and Thoracic Esophagram DATE OF EXAM: 11/10/2018 CLINICAL INDICATION: 53-year-old female with GERD, crushing chest pain which led to an ER visit. Hiat al hernia seen on radiograph and CT. COMPARISON: 11/06/2018 CT and chest x-ray Total Fluoroscopy Time: 1.58 minutes. Total images: 48. FINDINGS: The swallowing mechanism is normal and hypopharyngeal anatomy is preserved. ACDF hardware is present . The cervical and thoracic portions have a normal course and caliber. Mild tertiary peristaltic waves are present. The mucosa is normal and no persistent filling defect is encountered. There is a sliding hiatal hernia. When the patient is relaxed, this virtually disappears. During Vals english and certainly positional maneuvers, this enlarges to a moderate to large size. Severe gastroesophageal reflux is demonstrated to the level of the throat. IMPRESSION: 1. Sliding hiatal hernia which varies from moderate to large size to nearly absent depending on breat juancarlos and positional maneuvers. 2. Severe gastroesophageal reflux to the level of the throat.
== END | disposition home or self-care (01) ==
LOC: RADFLMAIN 10:29
PROVIDERS: ATTEND Surgery
DX: K21.9 Gastro-esophageal reflux disease without esophagitis (principal); K44.9 Diaphragmatic hernia without obstruction or gangrene
CPT/HCPCS: 74220

== ENCOUNTER → 2018-11-15 | Day surgery (SDC) | payer MEDICARE, OTHER ==
[2018-11-09 17:52] VITALS: BMI 27.2
[~2018-11-15] MED LIST: LACTATED RINGERS 1,000 ML IV ONE; LIDOCAINE 1% 20 ML VIAL (10MG/ML) FOR IV START INTRADERMA ONE; LIDOCAINE 1% INJ 10MG/ML (20 ML MDV) ONE; MIDAZOLAM 2 MG/2 ML VIAL ONE; PROPOFOL 10 MG/ML 20 ML VIAL IV ONE
[2018-11-15 09:07] VITALS: RESP 16; TEMP 97
--- NOTE | 2018-11-15 10:09 | P.GSHP ---
History of Present Illness H&P Date: 11/15/18 Chief Complaint: GERD This a 53-year-old female who presents today for EGD. She's had issues with GERD. Her recent esophagram shows evidence of a large sliding hiatal hernia with severe reflux. Past Medical History Past Medical History: Cancer, Thyroid Disorder Additional Past Medical History / Comment(s): Hiatal hernia,SKIN CANCER, MIGRAINE HEADACHE, THYROID CANCER, CHRONIC BACK PAIN-rt drop foot-wears a brace at times r/t back injury History of Any Multi-Drug Resistant Organisms: None Reported Past Surgical History: Section, Orthopedic Surgery Additional Past Surgical History / Comment(s): neck surgery - fusion, thyroidectomy 03/06/15, back surgery 07/08,3 c sections Past Anesthesia/Blood Transfusion Reactions: No Reported Reaction Smoking Status: Current every day smoker - Past Family History Mother Family Medical History: COPD Medications and Allergies Home Medications Medication Instructions Recorded Confirmed Type Ibuprofen [Motrin] 800 mg PO TID 11/06/18 11/15/18 History Allergies Allergy/AdvReac Type Severity Reaction Status Date / Time No Known Allergies Allergy Verified 11/15/18 09:07 Surgical - Exam Vital Signs Temp Pulse Resp BP Pulse Ox 97.0 F L 74 16 126/76 98 11/15/18 09:06 11/15/18 09:06 11/15/18 09:06 11/15/18 09:06 11/15/18 09:06 - General well developed, well nourished, no distress - Eyes PERRL - ENT normal pinna - Neck no masses - Respiratory normal expansion - Cardiovascular Rhythm: regular - Abdomen Abdomen: soft, non tender Assessment and Plan Assessment: GERD. We'll perform EGD.
--- NOTE | 2018-11-15 10:11 | P.OP ---
Date of Procedure: 11/15/18 Preoperative Diagnosis: GERD Postoperative Diagnosis: Antral gastritis Large hiatal hernia Mild esophagitis Procedure(s) Performed: EGD Anesthesia: MAC Surgeon: Emeterio West Pathology: other (Antrum, esophagus) Condition: stable Disposition: PACU Description of Procedure: The patient's placed on the endoscopy table in the lateral position. He received IV sedation. The gastroscope placed oropharynx and passed into the esophagus and into the stomach. Scope was then placed through the pylorus. The first and second portion of the duodenum appeared normal. Scope was then brought back the antrum and this appeared mildly inflamed and a biopsy was performed. The scope was then brought back and then retroflexed the remainder some appeared normal. However there was a large hiatal hernia. The GE junction was at 36 7 is. The distal esophagus appeared minimally inflamed a biopsies performed. The proximal esophagus appeared normal. Scope was withdrawn for patient.
[2018-11-15 10:34] VITALS: BP 121/85; PULSE 78
== END | disposition home or self-care (01) ==
LOC: ORWHC2ENDO 08:52
PROVIDERS: ATTEND Surgery
DX: K29.50 Unspecified chronic gastritis without bleeding (principal); B96.81 Helicobacter pylori [H. pylori] as the cause of diseases classified elsewhere; K44.9 Diaphragmatic hernia without obstruction or gangrene; E07.9 Disorder of thyroid, unspecified; Z85.850 Personal history of malignant neoplasm of thyroid; Z85.828 Personal history of other malignant neoplasm of skin; G89.29 Other chronic pain; M54.9 Dorsalgia, unspecified; M21.371 Foot drop, right foot; F17.200 Nicotine dependence, unspecified, uncomplicated; Z79.1 Long term (current) use of non-steroidal anti-inflammatories (NSAID)
CPT/HCPCS: 88305; 88342; 43239; J2250; J2001; J2704

== ENCOUNTER → 2018-12-09 | Outpatient (CLI) | payer MEDICARE, OTHER ==
[2018-12-09 07:29] LABS: Basophils # (A) 0.1 k/uL (0-0.2); Basophils % (A) 1 %; Eosinophils # (A) 0.2 k/uL (0-0.7); Eosinophils % (A) 2 %; HCT 43.9 % (34.0-46.0); HGB 14.4 gm/dL (11.4-16.0); Lymphocytes # (A) 3.4 k/uL (1.0-4.8); Lymphocytes % (A) 39 %; MCH 28.9 pg (25.0-35.0); MCHC 32.9 g/dL (31.0-37.0); MCV 87.9 fL (80.0-100.0); Mean Platelet Volume 7.6; Monocytes # (A) 0.4 k/uL (0-1.0); Monocytes % (A) 4 %; Neutrophils # (A) 4.5 k/uL (1.3-7.7); Neutrophils % (A) 52 %; Platelet Count 248 k/uL (150-450); RBC 4.99 m/uL (3.80-5.40); RDW 13.2 % (11.5-15.5); WBC 8.6 k/uL (3.8-10.6)
== END ==
LOC: LABPAT 06:46
PROVIDERS: ATTEND Surgery
DX: Z01.812 Encounter for preprocedural laboratory examination (principal); K21.0 Gastro-esophageal reflux disease with esophagitis; K29.70 Gastritis, unspecified, without bleeding; D64.9 Anemia, unspecified; F17.200 Nicotine dependence, unspecified, uncomplicated
CPT/HCPCS: 85025

== ENCOUNTER 2018-12-19 08:22 | Day surgery (SDC) | payer MEDICARE, OTHER ==
[2018-12-06 15:34] VITALS: BMI 25.6
[~2018-12-19 08:22] MED LIST changes: +DEXAMETHASONE SOD PHOSPHATE 10 MG/ML 1 ML VIAL IV ONE; +HEPARIN SODIUM,PORCINE 5,000 UNIT/ML 1 ML VIAL SQ ONE; -LACTATED RINGERS 1,000 ML IV ONE; +LACTATED RINGERS 1,000 ML IV SCH; -LIDOCAINE 1% 20 ML VIAL (10MG/ML) FOR IV START INTRADERMA ONE; +LIDOCAINE 1% 20 ML VIAL (10MG/ML) FOR IV START INTRADERMA PRN; -LIDOCAINE 1% INJ 10MG/ML (20 ML MDV) ONE; -MIDAZOLAM 2 MG/2 ML VIAL ONE; +ONDANSETRON 4 MG/2 ML VIAL IVP ONE; -PROPOFOL 10 MG/ML 20 ML VIAL IV ONE; +SCOPOLAMINE 1.5MG/72HR PATCH TRANSDERM ONE; +ceFAZolin IN SWFI 2 GM/20 ML SYRINGE IVP ONE
[2018-12-19] MEDS ORDERED: MIDAZOLAM (PF) 2 MG/2 ML VIAL IVP ONE (09:40)
--- NOTE | 2018-12-19 09:57 | P.GSHP ---
History of Present Illness H&P Date: 12/19/18 Chief Complaint: GERD This a 53-year-old female who presents today for laparoscopic Talia fundoplication.The patient has had long-standing problems with reflux esophagitis. The patient underwent recent EGD is found have evidence of esophagitis. Patient has been well informed on the procedure of laparoscopic Talia fundoplication. The patient is aware the risk of the conversion to the open procedure, risk of injury to the stomach, liver and spleen. The patient is also a risk of recurrent GERD and dysphagia symptoms. The patient understands there is a postoperative diet of full liquids for 2 weeks after surgery. Past Medical History Past Medical History: Cancer, CVA/TIA, Thyroid Disorder Additional Past Medical History / Comment(s): Hiatal hernia,SKIN CANCER, MIGRAI NE HEADACHE, THYROID CANCER, CHRONIC BACK PAIN-rt drop foot-wears a brace at times r/t back injury, H PYLORI , THYROID CANCER , TIA 2016 History of Any Multi-Drug Resistant Organisms: None Reported Past Surgical History: Section, Orthopedic Surgery Additional Past Surgical History / Comment(s): neck surgery WITH PLATE AND SCREWS - fusion, thyroidectomy 03/06/15, back surgery,3 c sections, EGD Past Anesthesia/Blood Transfusion Reactions: No Reported Reaction Smoking Status: Current every day smoker - Past Family History Mother Family Medical History: COPD Medications and Allergies Home Medications Medication Instructions Recorded Confirmed Type Ibuprofen [Motrin] 800 mg PO TID 11/06/18 12/19/18 History Amoxicillin 1,000 mg PO BID 12/06/18 12/19/18 History Clarithromycin [Biaxin] 500 mg PO Q12HR 12/06/18 12/19/18 History Omeprazole 20 mg PO BID 12/06/18 12/19/18 History Allergies Allergy/AdvReac Type Severity Reaction Status Date / Time No Known Allergies Allergy Verified 12/06/18 14:50 Surgical - Exam Vital Signs Temp Pulse Resp BP Pulse Ox 98.1 F 74 18 134/73 97 12/19/18 08:52 12/19/18 08:52 12/19/18 08:52 12/19/18 08:52 12/19/18 08:52 - General well developed, well nourished, no distress - Eyes PERRL - ENT normal pinna - Neck no masses - Respiratory normal expansion - Cardiovascular Rhythm: regular - Abdomen Abdomen: soft, non tender Assessment and Plan Assessment: GERD. We'll perform laparoscopic Talia fundal plication.
[2018-12-19] MEDS ORDERED: GLYCOPYRROLATE 0.2 MG/ML 2 ML VIAL ONE (10:17)
[2018-12-19] MEDS ORDERED: NEOSTIGMINE 1 MG/ML 10 ML VIAL ONE (10:17)
[2018-12-19] MEDS ORDERED: SUCCINYLCHOLINE CHLORIDE 100 MG/5 ML SYR IV ONE (10:17)
[2018-12-19] MEDS ORDERED: fentaNYL (PF) 50 MCG/ML 2 ML AMP ONE (10:17)
[2018-12-19] MEDS ORDERED: ROCURONIUM BROMIDE 10 MG/ML 10 ML VIAL IV ONE (10:17)
[2018-12-19] MEDS ORDERED: PROPOFOL 10 MG/ML 20 ML VIAL IV ONE (10:17)
[2018-12-19] MEDS ORDERED: LIDOCAINE 1% INJ 10MG/ML (20 ML MDV) ONE (10:17)
[2018-12-19] MEDS ORDERED: PHENYLEPHRINE-0.9% NACL SYG 1 MG/10 ML SYRINGE ONE (10:17)
[2018-12-19] MEDS ORDERED: BUPIVACAINE (PF) 0.5% 30 ML VIAL SQ ONE (10:39)
[2018-12-19] MEDS ORDERED: LACTATED RINGERS 1,000 ML IV ONE (11:08)
[2018-12-19] MEDS: HYDROmorphone 0.5 MG/0.5 ML SYRINGE IVP PRN ×2 (11:32→11:37)
--- NOTE | 2018-12-19 11:37 | P.OP ---
Date of Procedure: 12/19/18 Preoperative Diagnosis: GERD Postoperative Diagnosis: GERD Procedure(s) Performed: Laparoscopic Talia fundal plication Anesthesia: KIKE Surgeon: Emeterio West Estimated Blood Loss (ml): 5 Pathology: none sent Condition: stable Disposition: PACU Description of Procedure: HThe patient was placed on the operating table in the supine position. The patient received general anesthesia. And was placed in dorsal lithotomy position. The patient was prepped and draped in the usual sterile fashion. The skin incision sites were anesthetized with 1% local Xylocaine. The skin was incised in the left periumbilical area and then using a blade less 5 mm trocar under direct visualization panel cavity was entered. After adequate insufflation the laparoscope was then placed into the peritoneal cavity. Next a 5 mm trochars placed in the right epigastric position. Another 5 millimeter trocar the right lateral position. Another 5 millimeter trocar in the left lateral position a 5 mm trocar is placed in the left epigastric position. And then the initial 5 mm trocar was exchanged for a 10 mm trocar. The left lateral lobe liver was retracted. The hernia was seen. The crural defect was then dissected using the Harmonic scissors device. A 360 crural dissection was performed the esophagus stomach was reduced back into the peritoneal Cavity. The crural defect was then closed using 2-0 Ethibond suture. Next the fundus of the stomach was mobilized using the Willard scissors device. and then a 58- English bougie dilator was placed oropharynx passed into the esophagus and stomach the fundal plication wrap was then performed by grasping the fundus post eriorly and bringing it around the esophagus and stomach fundoplication was then performed using 2-0 Ethibond suture. Care was taken that the fundal location rested over top of the intra-abdominal esophagus. There was no injury seen to the stomach or esophagus. The dilator was then withdrawn. The abdomen was irrigated there is no bleeding seen. The trochars were then withdrawn and then skin incision sites were closed using 3-0 Monocryl suture Steri-Strips are applied. Patient thought procedure well and sent to recovery room in stable condition.
[2018-12-19] MEDS ORDERED: ONDANSETRON 4 MG/2 ML VIAL IVP PRN (12:01)
[2018-12-19] MEDS: D5-0.45% NACL WITH KCL 20MEQ/L 1,000 ML IV SCH ×2 (13:30→21:18)
[2018-12-19] MEDS: HYDROmorphone 1 MG/ML 1 ML SYRINGE IVP PRN ×2 (13:30→20:19)
[2018-12-19] MEDS ORDERED: MORPHINE SULFATE 2 MG/ML SYRINGE IVP STA (16:34)
[2018-12-19] MEDS: METOCLOPRAMIDE 5 MG/ML 2 ML VIAL IVP SCH ×2 (18:23→23:50)
--- NOTE | 2018-12-19 19:45 | P.CONS ---
History of Present Illness - History of Present Illness This is a pleasant 53 years old female with past medical history of hypothyro idism, CVA/TIA, hiatal hernia, migraine, thyroid cancer, chronic back pain and right foot drop for which she wears a brace, she has history of hiatal hernia, and she will underwent laparoscopic Talia fundoplication by this surgery team, medical team has been consulted for medical management. pt was lying in bed , calm , and sleeping , pt complains from pain at the surgical site and ask a little dose of pain killer through the iv. rest of pain management. with be done with surgical team. also will await when pt can start diet as per surgical team no chest pain , no dyspnea, no dizziness. Review of Systems CONSTITUTIONAL: No fever, no malaise, no fatigue. HEENT: No recent visual problems or hearing problems. Denied any sore throat. CARDIOVASCULAR: No orthopnea, PND, no palpitations, no syncope. PULMONARY: No shortness of breath, no cough, no hemoptysis. GASTROINTESTINAL: No diarrhea, no nausea, no vomiting, no abdominal pain. Normoactive bowel sounds. NEUROLOGICAL: No headaches, no weakness, no numbness. HEMATOLOGICAL: Denies any bleeding or petechiae. GENITOURINARY: Denies any burning micturition, frequency, or urgency. MUSCULOSKELETAL/RHEUMATOLOGICAL: Denies any joint pain, swelling, or any muscle pain. ENDOCRINE: Denies any polyuria or polydipsia. Past Medical History Past Medical History: Cancer, CVA/TIA, Thyroid Disorder Additional Past Medical History / Comment(s): Hiatal hernia,SKIN CANCER, MIGRAINE HEADACHE, THYROID CANCER, CHRONIC BACK PAIN-rt drop foot-wears a brace at times r/t back injury, H PYLORI , THYROID CANCER , TIA 2016 History of Any Multi-Drug Resistant Organisms: None Reported Past Surgical History: Section, Orthopedic Surgery Additional Past Surgical History / Comment(s): neck surgery WITH PLATE AND SCREWS - fusion, thyroidectomy 03/06/15, back surgery,3 c sections, EGD Past Anesthesia/Blood Transfusion Reactions: No Reported Reaction Smoking Status: Current every day smoker - Past Family History Mother Family Medical History: COPD Medications and Allergies Home Medications Medication Instructions Recorded Confirmed Type Ibuprofen [Motrin] 800 mg PO TID 11/06/18 12/19/18 History Clarithromycin [Biaxin] 500 mg PO Q12HR 12/06/18 12/19/18 History RX: Amoxicillin 1,000 mg PO BID 12/06/18 12/19/18 History RX: Omeprazole 20 mg PO BID 12/06/18 12/19/18 History Allergies Allergy/AdvReac Type Severity Reaction Status Date / Time No Known Allergies Allergy Verified 12/19/18 19:00 Physical Exam Vitals: Vital Signs Temp Pulse Pulse Resp BP BP Pulse Ox 12/19/18 12:02 64 16 150/84 94 L 12/19/18 11:47 68 16 146/76 100 12/19/18 11:32 88 18 195/90 97 12/19/18 11:17 97.8 F 105 H 16 191/76 6 L 12/19/18 08:52 98.1 F 74 18 134/73 97 Intake and Output 12/18/18 12/19/18 12/19/18 22:59 06:59 14:59 Intake Total 1300 Output Total 305 Balance 995 Intake: IV 1300 Output: Urine 300 Estimated Blood Loss 5 GENERAL: The patient is alert and oriented x3, not in any acute distress. Well developed, well nourished. HEENT: Pupils are round and equally reacting to light. EOMI. No scleral icterus. No conjunctival pallor. Normocephalic, atraumatic. No pharyngeal erythema. No thyromegaly. CARDIOVASCULAR: S1 and S2 present. No murmurs, rubs, or gallops. PULMONARY: Chest is clear to auscultation, no wheezing or crackles. ABDOMEN: Soft, nontender, nondistended, normoactive bowel sounds. No palpable organomegaly. MUSCULOSKELETAL: No joint swelling or deformity. EXTREMITIES: No cyanosis, clubbing, or pedal edema. NEUROLOGICAL: Gross neurological examination did not reveal any focal deficits. SKIN: No rashes. Assessment and Plan Assessment: Hemodynamically stable, nontender is ago are reviewed showing unremarkable CBC History of hiatal hernia, status post laparoscopic Talia fundoplication History of thyroid cancer History of hypothyroidism History of TIA in 2017 History of migraine History of chronic back pain secondary to back injury with resultant right foot drop Plan: This is a pleasant 53 years old female who presents with Dre fundoplication for her hiatal hernia. Patient comfortable. Pain management as per primary team. Labs and medication were reviewed.. Continue same treatment. Continue with symptomatic treatment. Resume home medication. Monitor lytes and vitals. DVT and GI prophylaxis. Further recommendations of the clinical course of the patient Thank you for consulting us
[2018-12-19] MEDS: ACETAMINOPHEN TAB 325 MG TAB PO PRN (23:56)
[2018-12-20] MEDS: ACETAMINOPHEN TAB 325 MG TAB PO PRN ×2 (04:17→08:15)
[2018-12-20] MEDS: D5-0.45% NACL WITH KCL 20MEQ/L 1,000 ML IV SCH ×2 (05:19→11:05)
[2018-12-20] MEDS: METOCLOPRAMIDE 5 MG/ML 2 ML VIAL IVP SCH ×2 (05:20→11:24)
[2018-12-20] MEDS ORDERED: ENOXAPARIN 40 MG/0.4 ML SYRINGE SQ SCH (09:00)
[2018-12-20 09:11] VITALS: BP 155/84; PULSE 81; RESP 20; TEMP 98.1
--- NOTE | 2018-12-20 09:54 | FL ---
SINGLE CONTRAST esophagram CLINICAL HISTORY: 53-year-old female status post Talia fundoplication, rule out leak/obstruction TECHNIQUE: Single contrast exam performed with 50 ml Isovue-370 contrast. Total fluoroscopy time: 1 minute 9 seconds. Total images: 19. FINDINGS: The patient swallowed oral contrast without difficulty or delay. Esophageal peristalsis and motility are within normal limits. There are postsurgical changes of Talia fundoplication with mild hesitanc y and passage of contrast into the stomach across the surgical site. There is no evidence of contrast extravasation to suggest leak. No free intraperitoneal air is identified below the hemidiaphragms. There is patchy left basilar opacity noted. ACDF hardware. IMPRESSION: 1. Status post Talia fundoplication. No evidence of leak. 2. Mild postoperative obstruction at the surgical level. 3. No significant free air seen below the hemidiaphragms. 4. However, there is patchy left basilar opacity that could represent atelectasis or infiltrate. Adams elate to exclude pneumonia.
--- NOTE | 2018-12-20 11:54 | P.DS ---
Providers Expected date of discharge: 12/20/18 Attending physician: Emeterio West Consults: 12/19/18 12:01 Consult Physician Routine Consulting Provider: Kamryn Puga Consult Reason/Comments: Medical management Do you want consulting provider notified?: Yes Primary care physician: Polina Rust Course: 53-year-old female who underwent laparoscopic Talia fundoplication secondary to GERD. Patient is doing well postoperatively without anemia complications. Esophagram was completed which was negative for leak or obstruction. Patient is tolerating clear liquid diet. Vital signs are stable. Patient is stable for discharge home today. Pain is controlled with Tylenol and patient has not want a prescription for narcotic pain medications at discharge. Please see EMR for further hospital course details. Discharge diagnosis: 1. GERD, laparoscopic Talia fundoplication Nurse practitioner note has been reviewed by physician. Signing provider agrees with the documented findings, assessment, and plan of care. Patient Condition at Discharge: Stable Plan - Discharge Summary Discharge Rx Participant: Yes New Discharge Prescriptions: Continue Ibuprofen [Motrin] 800 mg PO TID Clarithromycin [Biaxin] 500 mg PO Q12HR Amoxicillin 1,000 mg PO BID Omeprazole 20 mg PO BID Discharge Medication List Ibuprofen [Motrin] 800 mg PO TID 11/06/18 [History] Amoxicillin 1,000 mg PO BID 12/06/18 [History] Clarithromycin [Biaxin] 500 mg PO Q12HR 12/06/18 [History] Omeprazole 20 mg PO BID 12/06/18 [History] Follow up Appointment(s)/Referral(s): Emeterio West MD [STAFF PHYSICIAN] - 01/03/19 1:20 pm Activity/Diet/Wound Care/Special Instructions: Tylenol as needed for pain No lifting pushing pulling over 10 pounds You may shower. No soaking or tub baths Very light activity until you are reevaluated at your follow up appointment with your surgeon Full liquid diet for 2 weeks call physician with any questions comments concerns worsening returning symptoms, fever 101.1 or higher, pus or excessive drainage from surgical site, not tolerating diet or fluids, pain that is not controlled by Tylenol. Discharge Disposition: HOME SELF-CARE
== END 2018-12-20 11:52 | disposition home or self-care (01) ==
LOC: OR 08:22 → 6PED 11:18 → OR 12-20 11:52
PROVIDERS: ATTEND Surgery
DX: K21.0 Gastro-esophageal reflux disease with esophagitis (principal); G89.29 Other chronic pain; M54.9 Dorsalgia, unspecified; M21.371 Foot drop, right foot; Z86.73 Personal history of transient ischemic attack (TIA), and cerebral infarction without residual deficits; Z85.850 Personal history of malignant neoplasm of thyroid; E89.0 Postprocedural hypothyroidism; Z85.821 Personal history of Merkel cell carcinoma; F17.200 Nicotine dependence, unspecified, uncomplicated; Z79.1 Long term (current) use of non-steroidal anti-inflammatories (NSAID); Z79.899 Other long term (current) drug therapy
CPT/HCPCS: 74210; 43280; J1644; J1100; J2710; J2765 ×2; J2405; J2001; J1650; J3010; J2270; J1170 ×2; J2370; J0330; J2704; J0690; Q9967; J2250; 36415; 86850; 86900; 86901

== ENCOUNTER → 2023-03-25 | Outpatient (CLI) | payer MEDICARE, OTHER ==
--- NOTE | 2023-03-25 14:54 | CT ---
EXAMINATION TYPE: CT chest wo con CT DLP: 128.1 mGycm, Automated exposure control for dose reduction was used. DATE OF EXAM: 03/25/2023 2:05 PM COMPARISON: Chest radiograph from same day. 03/20/2015. CLINICAL INDICATION:Female, 57 years old with history of R06.02 SHORTNESS OF BREATH; PHH, Shortness o f breath TECHNIQUE: Multiple axial images were obtained through the chest. Sagittal and coronal reformats were created for review. Contrast used: mL of (None if empty) Oral contrast used: (None if empty) FINDINGS: LUNGS/ PLEURA: Centrilobular emphysema changes are seen throughout the lungs. Streaky atelectasis pre sent scattered throughout the lungs. No focal consolidation pneumothorax or pleural effusion. AIRWAY: Patent and unremarkable. HEART: Size within normal limits. MEDIASTINUM: No gross evidence of adenopathy. VASCULATURE: No aortic aneurysm. MUSCULOSKELETAL: No acute osseous abnormalities SOFT TISSUES/LYMPH NODES: Unremarkable. LOWER NECK: No significant findings. UPPER ABDOMEN: Nonobstructing left renal cortical cyst measuring 7 mm. Postsurgical change the gastro esophageal junction. Suspected left renal cysts partially visualized. An poorly evaluated without IV contrast. IMPRESSION: 1. Mild emphysema changes. 2. Right lower lung groundglass nodule measuring 5 mm. Follow-up imaging in one year with CT low dos e chest recommended. 3. Nonobstructing left renal calculus.
== END | disposition home or self-care (01) ==
LOC: RADCTMAIN 09:51
PROVIDERS: ATTEND Internal Medicine
DX: J43.2 Centrilobular emphysema (principal); R91.1 Solitary pulmonary nodule; N20.0 Calculus of kidney
CPT/HCPCS: 71250

== ENCOUNTER → 2023-04-23 | Outpatient (CLI) | payer MEDICARE, OTHER ==
--- NOTE | 2023-04-27 22:56 | MM ---
Reason for Exam: Screening (asymptomatic). Last mammogram was performed 6 year(s) and 0 month(s) ago. Patient History: Menarche at age 11. First Full-Term at age 20. Postmenopausal. Patient has history of breast feeding. 06/08/2017, Benign Core Biopsy on the right side. Risk Values: Nicol 5 year model risk: 1.5%. NCI Lifetime model risk: 7.9%. Prior Study Comparison: 05/18/2017 Bilateral Screening Mammogram, [facility]. 06/02/2017 Right Diagnostic Mammogram, [facility]. Tissue Density: There are scattered fibroglandular densities. Findings: Analyzed By CAD. Microclip in the right breast from prior biopsy. On the left, nodularity posterior central MLO view corresponds to a tortuous vessel on 3-D images. There is no suspicious group of microcalcifications or new suspicious mass in either breast. Overall Assessment: Benign, BI-RAD 2 Management: Screening Mammogram of both breasts in 1 year. . Patient should continue monthly self-breast exams. A clinical breast exam by your physician is recommended on an annual basis. This exam should not preclude additional follow-up of suspicious palpable abnormalities. Note on Nicol scores and lifetime risk: 1. A Nicol score greater than 3% is considered moderate risk. If this is the case, consider specialist referral to assess eligibility for a risk reducing agent. 2. If overall lifetime risk for the development of breast cancer is 20% or higher, the patient may qualify for future screening with alternating mammogram and breast MRI. Electronically signed and approved by: Kamila Delacruz M.D. Radiologist
== END | disposition home or self-care (01) ==
LOC: RADMAMWWP 14:00
PROVIDERS: ATTEND Internal Medicine
DX: Z12.31 Encounter for screening mammogram for malignant neoplasm of breast (principal); Z78.0 Asymptomatic menopausal state
CPT/HCPCS: 77063; 77067

== ENCOUNTER → 2023-04-23 | Outpatient (CLI) | payer MEDICARE, OTHER ==
--- NOTE | 2023-04-23 14:50 | US ---
EXAMINATION TYPE: US kidneys/renal and bladder DATE OF EXAM: 04/23/2023 COMPARISON: CT abdomen and pelvis 11/06/2018 CLINICAL INDICATION: Female, 58 years old with history of N28.1 RENAL CYST; renal cyst follow up to c t scan hx of thyroid ca lost 40lbs in 3 months. EXAM MEASUREMENTS: Right Kidney: 12.4 x 3.9 x 4.6 cm Left Kidney: 9.7 x 4.7 x 4.2 cm Incidental finding calcifications right ovary 3.5 x 1.8 x 2.0 cm. Right Kidney: Dilated renal pelvis 2.4 x 1.8 x 2.2 cm Left Kidney: Echogenic foci seen lower pole anechoic area 2.2 x 1.6 x 2.1 cm. Complex area upper pole 2.8 x 2.2 x 2.6 cm Dilated renal pelvis 3.1 cm. Bladder: anechoic Bilateral Jets seen: rt only There is no evidence for hydronephrosis at this point in time. Prominent right renal pelvis correspon ding to prior CT. No nephrolithiasis is seen. Lower pole left renal simple cyst. Left upper pole cys tic lesion with echogenic focus which corresponds to prior CT. The urinary bladder is anechoic. Right ureteral jet only visualized. Incidental calcifications within the right ovary. IMPRESSION: 1. No hydronephrosis or nephrolithiasis. 2. Left renal cysts with a minimally complex left upper pole cyst corresponding to prior CT. No signi ficant change in size from prior examination. No worrisome features.
== END | disposition home or self-care (01) ==
LOC: RADUSWWP 14:01
PROVIDERS: ATTEND Internal Medicine
DX: N28.1 Cyst of kidney, acquired (principal); Z85.850 Personal history of malignant neoplasm of thyroid
CPT/HCPCS: 76770